=== PATIENT | female | born 1985 | race Caucasian/White ===

== ENCOUNTER 2021-04-09 11:08 | Emergency (ER) | payer OTHER ==
[2021-04-09 11:16] VITALS: BP 93/63; PULSE 73; TEMP 97; BMI 24.9
[2021-04-09] MEDS ORDERED: diazePAM 5 MG TABLET PO ONE (11:41)
[2021-04-09] MEDS ORDERED: KETOROLAC TROMETHAMINE 30 MG/1 ML VIAL IM ONE (11:41)
[2021-04-09] MEDS ORDERED: METHOCARBAMOL 500 MG TABLET PO ONE (11:41)
[2021-04-09] MEDS ORDERED: METHOCARBAMOL 500 MG TABLET ONE (11:46)
[2021-04-09] MEDS ORDERED: KETOROLAC TROMETHAMINE 30 MG/1 ML VIAL ONE (11:46)
[2021-04-09] MEDS ORDERED: diazePAM 5 MG TABLET ONE (11:46)
== END 2021-04-09 12:56 | disposition home or self-care (01) ==
LOC: JER 11:08
PROC: 3E0233Z Introduction of Anti-inflammatory into Muscle, Percutaneous Approach (ICD-10-PCS; principal; 2021-04-09)
DX: M94.0 Chondrocostal junction syndrome [Tietze] (principal); M62.838 Other muscle spasm
CPT/HCPCS: 96372; 99284-25

== ENCOUNTER 2021-08-07 15:31 | Emergency (ER) | payer OTHER ==
[2021-08-07 15:39] VITALS: BP 104/68; PULSE 67; TEMP 97.9; BMI 24.9
[2021-08-07] MEDS ORDERED: diazePAM 5 MG TABLET PO ONE (16:34)
[2021-08-07] MEDS ORDERED: KETOROLAC TROMETHAMINE 30 MG/1 ML VIAL IM ONE (16:34)
[2021-08-07] MEDS ORDERED: LIDOCAINE 5% TOPICAL PATCH TP ONE (16:34)
[2021-08-07] MEDS ORDERED: KETOROLAC TROMETHAMINE 30 MG/1 ML VIAL ONE (17:22)
[2021-08-07] MEDS ORDERED: LIDOCAINE 5% TOPICAL PATCH ONE (17:22)
[2021-08-07] MEDS ORDERED: diazePAM 5 MG TABLET ONE (17:22)
[2021-08-07] MEDS ORDERED: LIDOCAINE PATCH REMOVAL MC SCH (22:00)
== END 2021-08-07 17:59 | disposition home or self-care (01) ==
LOC: JERFT 15:31
PROC: 3E0233Z Introduction of Anti-inflammatory into Muscle, Percutaneous Approach (ICD-10-PCS; principal; 2021-08-07)
DX: S39.012A Strain of muscle, fascia and tendon of lower back, initial encounter (principal); V49.40XA Driver injured in collision with unspecified motor vehicles in traffic accident, initial encounter
CPT/HCPCS: 72100-TC-FY; 99284-25